=== PATIENT | male | born 1970 | race Caucasian/White ===

== ENCOUNTER 2017-08-07 22:10 | Emergency (ER) | payer SELFPAY ==
[~2017-08-07] VITALS: Ht 165.1 cm; Wt 59.0 kg
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
[2017-08-07 22:16] VITALS: BP 128/85
[2017-08-07] MEDS ORDERED: RIVA20TA PO (22:20)
== END 2017-08-07 22:25 ==
LOC: ER 22:12
DX: F10.920 Alcohol use, unspecified with intoxication, uncomplicated (principal)
CPT/HCPCS: 99282